=== PATIENT | female | born 1950 | race Caucasian/White ===

== ENCOUNTER 2017-03-28 17:00 | Emergency (ER) | payer MEDICARE, OTHER ==
[~2017-03-28] VITALS: Ht 162.6 cm; Wt 70.3 kg
[2017-03-28 17:29] LABS: BASOPHILS % (AUTO) 0 % (0-10); EOSINOPHILS % (AUTO) 0 % (0-10); HEMATOCRIT 45 % (35-52); HEMOGLOBIN 15.5 G/DL (11.5-16.0); LYMPHOCYTES # (AUTO) 1.6 X 10^3 (1.0-4.0); LYMPHOCYTES % (AUTO) 14 % (12-44); MEAN CORPUSCULAR HEMOGLOBIN 32 PG (25-34); MEAN CORPUSCULAR HGB CONC 35 G/DL (32-36); MEAN CORPUSCULAR VOLUME 91 FL (80-99); MEAN PLATELET VOLUME 10.7 FL (7.4-10.4); MONOCYTES # (AUTO) 0.3 X 10^3 (0.0-1.0); MONOCYTES % (AUTO) 3 % (0-12); NEUTROPHILS # (AUTO) 9.3 X 10^3 (1.8-7.8); NEUTROPHILS % (AUTO) 83 % (42-75); PLATELET COUNT 313 10^3/uL (130-400); RED BLOOD COUNT 4.89 10^6/uL (4.35-5.85); RED CELL DISTRIBUTION WIDTH 12.8 % (10.0-14.5); WHITE BLOOD COUNT 11.3 10^3/uL (4.3-11.0)
[2017-03-28] MEDS ORDERED: ONDANSETRON 4 MG/2 ML (SDV) Z0FRAN IVP ONE (17:30)
[2017-03-28] MEDS ORDERED: MECLIZINE 25 MG (ANTIVERT) TAB PO ONE (17:30)
--- NOTE | 2017-03-28 17:31 | ED General ---
General Chief Complaint: Dizziness/Syncope Stated Complaint: DIZZY/N/V/SYNCOPE Nursing Triage Note: PATIENT DIZZY, ALMOST PASSING OUT. SHE HAS BEEN NAUSEOUS. Nursing Sepsis Screen: No Definite Risk Source of Information: Patient Exam Limitations: No Limitations (MATTHEW LIVINGSTON MD) History of Present Illness Date Seen by Provider: Mar 28, 2017 Time Seen by Provider: 17:05 Initial Comments Here by EMS with report of persistent dizziness since waking up this morning. States that she was fine yesterday. When she woke up this morning she was nauseated and dizzy with sitting up. She fell back in the bed 3 times. She has vomited. Denies chest pain or diarrhea but states that her stomach is very active. 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 Denies any upper respiratory symptoms. Denies ear pain or fullness. Denies any recent trauma or injury. She did not hit her head or injure herself with the fall as these were all sitting up in bed in that she would have to lay back or fall back. Timing/Duration: 4-6 Hours Severity: Moderate Associated Systoms: No Chest Pain, No Cough, No Fever/Chills, Nausea/Vomiting, No Seizure, No Shortness of Air, No Weakness (MATTHEW LIVINGSTON MD) Allergies and Home Medications Allergies Coded Allergies: codeine (Verified Allergy, Unknown, 03/28/17) Home Medications Sulfamethoxazole/Trimethoprim 1 Each Tablet, 1 EACH PO BID, #10 Ref 0 Prescribed by: PAWEL POOLE on 03/28/172038 Constitutional: see HPI, No chills, No fever EENTM: see HPI Respiratory: No cough, No short of breath Cardiovascular: No chest pain, No palpitations, other (near syncope) Gastrointestinal: No abdominal pain, No diarrhea, nausea, vomiting Genitourinary: no symptoms reported Musculoskeletal: no symptoms reported Skin: no symptoms reported Psychiatric/Neurological: See HPI, Denies Headache, Other (dizziness with moving and sitting up.) Hematologic/Lymphatic: No Symptoms Reported (MATTHEW LIVINGSTON MD) All Other Systems Reviewed Negative Unless Noted: Yes (MATTHEW LIVINGSTON MD) Past Puumnat-Cfqnyp-Oekrpm Hx Patient Social History Alcohol Use: Denies Use Recreational Drug Use: No Smoking Status: Never a Smoker 2nd Hand Smoke Exposure: No Recent Foreign Travel: No Contact w/Someone Who Travel: No Recent Infectious Disease Expo: No Recent Hopitalizations: No (MATTHEW LIVINGSTON MD) Seasonal Allergies Seasonal Allergies: No (MATTHEW LIVINGSTON MD) Surgeries History of Surgeries: Yes (D&c, ) Surgeries: Breast, Eye Surgery, Orthopedic (MATTEHW LIVINGSTON MD) Respiratory History of Respiratory Disorde: Yes Respiratory Disorders: Chronic Bronchitis (MATTHEW LIVINGSTON MD) Neurological History of Neurological Disord: Yes Neurological Disorders: Vertigo (MATTHEW LIVINGSTON MD) Gastrointestinal History of Gastrointestinal Di: Yes Gastrointestinal Disorders: Gastroesophageal Reflux (MATTHEW LIVINGSTON MD) Musculoskeletal History of Musculoskeletal Dis: Yes Musculoskeletal Disorders: Degenerate Disk Disease (MATTHEW LIVINGSTON MD) Endocrine History of Endocrine Disorders: No (MATTHEW LIVINGSTON MD) HEENT History of HEENT Disorders: Yes HEENT Disorders: Glaucoma (MATTHEW LIVINGSTON MD) Cancer History of Cancer: No (MATTHEW LIVINGSTON MD) Psychosocial History of Psychiatric Problem: No (MATTHEW LIVINGSTON MD) Blood Transfusions History of Blood Disorders: No (MATTHEW LIVINGSTON MD) Reviewed Nursing Assessment Reviewed/Agree w Nursing PMH: Yes (MATTHEW LIVINGSTON MD) Family Medical History Significant Family History: Hypertension, Vascular Disease (MATTHEW LIVINGSTON MD) Physical Exam Vital Signs Vital Signs - First Documented 03/28/17 17:02 Temp 99.0 Pulse 77 Resp 18 B/P (MAP) 143/83 (103) Pulse Ox 98 O2 Delivery Room Air (PAWEL POOLE) Vital Signs Capillary Refill : Less Than 3 Seconds (MATTHEW LIVINGSTON MD) General Appearance: WD/WN, Mild Distress (dizziness and nausea) Eyes: Bilateral Eye Normal Inspection, Bilateral Eye PERRL, Bilateral Eye EOMI , Bilateral Eye Other (no nystagmus noted) HEENT: PERRL/EOMI, TMs Normal, Pharynx Normal Neck: Non Tender, Supple Respiratory: Lungs Clear, Normal Breath Sounds Cardiovascular: Regular Rate, Rhythm, No Murmur Gastrointestinal: Non Tender, Soft Back: Normal Inspection, No CVA Tenderness, No Vertebral Tenderness Extremity: Normal Inspection, Normal Range of Motion, Non Tender, No Calf Tenderness Neurologic/Psychiatric: Alert, Oriented x3, No Motor/Sensory Deficits Skin: Normal Color, Warm/Dry (MATTHEW LIVINGSTON MD) Progress/Results/Core Measures Suspected Sepsis Recent Fever Within 48 Hours: No Infection Criteria Present: None New/Unexplained Altered Menta: No Sepsis Screen: No Definite Risk Sepsis Diagnosis: SIRS Temperature:99.0 Pulse: 77 Respiratory Rate: 18 Blood Pressure 143 /83 Mean: 103 (MATTHEW LIVINGSTON MD) Results/Orders Lab Results Laboratory Tests Test 03/28/17 17:00 03/28/17 17:49 Range/Units White Blood Count 11.3 H 4.3-11.0 10^3/uL Red Blood Count 4.89 4.35-5.85 10^6/uL Hemoglobin 15.5 11.5-16.0 G/DL Hematocrit 45 35-52 % Mean Corpuscular Volume 91 80-99 FL Mean Corpuscular Hemoglobin 32 25-34 PG Mean Corpuscular Hemoglobin Concent 35 32-36 G/DL Red Cell Distribution Width 12.8 10.0-14.5 % Platelet Count 313 130-400 10^3/uL Mean Platelet Volume 10.7 H 7.4-10.4 FL Neutrophils (%) (Auto) 83 H 42-75 % Lymphocytes (%) (Auto) 14 12-44 % Monocytes (%) (Auto) 3 0-12 % Eosinophils (%) (Auto) 0 0-10 % Basophils (%) (Auto) 0 0-10 % Neutrophils # (Auto) 9.3 H 1.8-7.8 X 10^3 Lymphocytes # (Auto) 1.6 1.0-4.0 X 10^3 Monocytes # (Auto) 0.3 0.0-1.0 X 10^3 Eosinophils # (Auto) 0.0 0.0-0.3 10^3/uL Basophils # (Auto) 0.0 0.0-0.1 10^3/uL D-Dimer 0.37 0.00-0.49 UG/ML Sodium Level 139 135-145 MMOL/L Potassium Level 3.9 3.6-5.0 MMOL/L Chloride Level 104 98-107 MMOL/L Carbon Dioxide Level 17 L 21-32 MMOL/L Anion Gap 18 H 5-14 MMOL/L Blood Urea Nitrogen 13 7-18 MG/DL Creatinine 0.85 0.60-1.30 MG/DL Estimat Glomerular Filtration Rate > 60 BUN/Creatinine Ratio 15 Glucose Level 118 H 70-105 MG/DL Calcium Level 10.0 8.5-10.1 MG/DL Magnesium Level 2.1 1.8-2.4 MG/DL Total Bilirubin 0.8 0.1-1.0 MG/DL Aspartate Amino Transf (AST/SGOT) 19 5-34 U/L Alanine Aminotransferase (ALT/SGPT) 13 0-55 U/L Alkaline Phosphatase 79 40-136 U/L Myoglobin 36.6 10.0-92.0 NG/ML Troponin I < 0.30 <0.30 NG/ML Total Protein 7.6 6.4-8.2 GM/DL Albumin 4.3 3.2-4.5 GM/DL Thyroid Stimulating Hormone (TSH) 0.56 0.35-4.94 UIU/ML Urine Color YELLOW Urine Clarity CLEAR Urine pH 8 5-9 Urine Specific [place] 1.010 L 1.016-1.022 Urine Protein NEGATIVE NEGATIVE Urine Glucose (UA) NEGATIVE NEGATIVE Urine Ketones 4+ H NEGATIVE Urine Nitrite NEGATIVE NEGATIVE Urine Bilirubin NEGATIVE NEGATIVE Urine Urobilinogen NORMAL NORMAL MG/DL Urine Leukocyte Esterase 2+ H NEGATIVE Urine RBC (Auto) NEGATIVE NEGATIVE Urine RBC NONE /HPF Urine WBC 25-50 H /HPF Urine Squamous Epithelial Cells 25-50 H /HPF Urine Crystals NONE /LPF Urine Bacteria FEW H /HPF Urine Casts NONE /LPF Urine Mucus NEGATIVE /LPF Urine Culture Indicated YES (PAWEL POOLE) Micro Results Microbiology 03/28/17 Influenza Types A,B Antigen (GAGAN) - Final, Complete 03/28/17 Urine Culture - Preliminary, Resulted Strep, Beta Hemolytic Group B (PAWEL POOLE) My Orders Orders - PAWEL POOLE Saline Lock/Iv-Start (03/28/17 18:20) Ns Iv 1000 Ml (Sodium Chloride 0.9%) (03/28/17 18:20) General/Regular (03/28/17 Dinner) Ct Head Wo (03/28/17 20:14) Sulfamethoxazole/Trimet Ds Tab (Bactrim (03/28/17 20:14) Rx-Trimeth/Sulfameth Ds Tab (Rx-Bactrim/ (03/28/17 20:40) Rx-Meclizine Hcl (Rx-Antivert) (03/28/17 20:40) Rx-Ondansetron Po (Rx-Zofran Po) (03/28/17 20:51) (PAWEL POOLE) Medications Given in ED (PAWEL POOLE) Vital Signs/I&O Intake and Output 03/29/17 00:00 Intake Total 1000 ml Balance 1000 ml (PAWEL POOLE) Vital Signs/I&O Capillary Refill : Less Than 3 Seconds (MATTHEW LIVINGSTON MD) Blood Pressure Mean: 103 Progress Note : Progress Note Seen and evaluated. IV by EMS. 1 L normal saline by EMS. Labs, UA and EKG ordered. Zofran 4 mg IV and meclizine 25 mg by mouth ordered. Monitor patient. (MATTHEW LIVINGSTON MD) Progress Note : Progress Note 1800 patient reports trace improvement in her symptoms, she's had no further nausea or vomiting. All labs to this point have been normal. Urine sample just obtained. 1844 patient taking ice chips. UA positive for urinary tract infection. 4+ ketones, will give normal saline IV 1 L. 1914 patient will attempt Coke orally and saltines 1999 patient continues to have mild dizziness with change of position. No nystagmus noted. CT head without contrast to be completed. [address] of head, patient able to sit on the side of the bed with minimal dizziness. 2039 CT head negative. Patient instructed in the Francisco maneuver for vertigo. Sitting on side of bed, no worsening of the nausea, vomiting or vertigo. Able to ambulate to wheelchair with minimal assistance and no complaints of vertigo. Discharge instructions, return precautions and home recommendations discussed at length with the patient. All questions answered. (PAWEL POOLE) ECG Initial ECG Impression Date: Mar 28, 2017 Initial ECG Impression Time: 17:23 Initial ECG Rate: 69 Initial ECG Rhythm: Normal Sinus Initial ECG Impression: Normal Initial ECG Comparisson: No Previous ECG Available Comment Sinus rhythm with normal axis. No evidence of ST elevation [place]. No previous available for comparison. Interpreted by me. (MATTHEW LIVINGSTON MD) Diagnostic Imaging Diagonstic Imaging: CT Plain Films/CT/US/NM/MRI: head Comments NAME: BECKY GREEN MED REC#: [id number] PT STATUS: REG ER : 1950 PHYSICIAN: PAWEL POOLE ADMIT DATE: 03/28/17/ER Draft Date of Exam:03/28/17 CT HEAD WO PROCEDURE: CT head without contrast. TECHNIQUE: Multiple contiguous axial images were obtained through the brain without the use of intravenous contrast. INDICATION: Dizziness, nausea, and vomiting There are no prior studies available for comparison. There is no mass, shift of the midline or hemorrhage to suggest an acute intracranial abnormality. The normal tentorial blush is noted. The ventricles are not abnormally dilated. There is mild cortical atrophy present. The degree of atrophy is consistent with the patient's age. The bone window show no evidence for a fracture or for a destructive lesion. The orbits and sinuses were not visualized in their entirety. Where visualized, there is no acute abnormality. IMPRESSION: 1. There is no evidence for an acute intracranial abnormality and there is no sign of a mass lesion. 2. If clinical concern regarding an underlying abnormality persists, then MRI would be recommended for further study. Dictated on workstation # [id number] Dict: 03/28/172024 Trans: 03/28/172029 DARIO [id number] Interpreted by: ISADORA ROMEO MD Electronically signed by: (PAWEL POOLE) Departure Impression Impression: Primary Impression: Vertigo Additional Impression: Urinary tract infection Qualified Codes: N30.01 - Acute cystitis with hematuria Disposition: HOME, SELF-CARE Condition: Stable Departure-Patient Inst. Decision time for Depature: 20:30 (PAWEL POOLE) Referrals: NO,LOCAL PHYSICIAN (PCP/Family) Primary Care Physician Patient Instructions: Urinary Tract Infection, Adult (DC), Vertigo (a Type of Dizziness) (DC) Add. Discharge Instructions: Increase water intake. Drink 1 glass of cranberry juice or eat 1 cup of fresh blueberries daily. Empty bladder every 2 hours while awake. Tylenol 650 mg alternating with ibuprofen 600 mg every 4 hours for fever or pain. All up with your primary care provider in 2-3 days if symptoms are not improving. Take antibiotic as prescribed. Take Antivert until follow-up with your primary care provider. Change positions slowly, moved from lying to sitting then standing slowly. Return to emergency department for fever greater than 101, increasing muscle weakness, dizziness or seizure activity, new problems or concerns. All discharge instructions reviewed with patient and/or family. Voiced understanding. Scripts Sulfamethoxazole/Trimethoprim (Bactrim Ds Tablet) 1 Each Tablet 1 EACH PO BID, #10 TAB 0 Refills Prov: PAWEL POOLE 03/28/17 MATTHEW LIVINGSTON MD Mar 28, 2017 17:30 PAWEL POOLE Mar 28, 2017 19:40
[2017-03-28 17:43] LABS: ALANINE AMINOTRANSFERASE 13 U/L (0-55); ALBUMIN 4.3 GM/DL (3.2-4.5); ALKALINE PHOSPHATASE 79 U/L (40-136); BILIRUBIN,TOTAL 0.8 MG/DL (0.1-1.0); BUN/CREATININE RATIO 15; CARBON DIOXIDE 17 MMOL/L (21-32); CHLORIDE 104 MMOL/L (98-107); CREATININE SERUM 0.85 MG/DL (0.60-1.30); GFR ESTIMATED > 60; GLUCOSE 118 MG/DL (70-105); MAGNESIUM 2.1 MG/DL (1.8-2.4); POTASSIUM 3.9 MMOL/L (3.6-5.0); SODIUM 139 MMOL/L (135-145); TOTAL PROTEIN 7.6 GM/DL (6.4-8.2)
[2017-03-28 17:56] LABS: BILIRUBIN,URINE NEGATIVE (NEGATIVE); CLARITY,URINE CLEAR; COLOR,URINE YELLOW; GLUCOSE, URINE (UA) NEGATIVE (NEGATIVE); KETONES,URINE 4+ (NEGATIVE); LEUKOCYTE ESTERASE ,URINE 2+ (NEGATIVE); NITRITE,URINE NEGATIVE (NEGATIVE); PH,URINE 8 (5-9); PROTEIN,URINE NEGATIVE (NEGATIVE); UROBILINOGEN,URINE NORMAL (NORMAL)
[2017-03-28 18:03] LABS: MYOGLOBIN SERUM 36.6 NG/ML (10.0-92.0)
[2017-03-28 18:07] LABS: BACTERIA,URINE FEW /HPF; SQUAMOUS EPITHELIAL CELL,UR 25-50 /HPF; WBC,URINE 25-50 /HPF
[2017-03-28] MEDS ORDERED: NS IV 1000 ML 1,000 ML IV ONE (18:20)
[2017-03-28] MEDS ORDERED: TRIM/SULFAMETH 160/800 (SEPTRA DS) TAB PO STA (20:14)
--- NOTE | 2017-03-28 20:31 | Diagnostic Imaging Report ---
PROCEDURE: CT head without contrast. TECHNIQUE: Multiple contiguous axial images were obtained through the brain without the use of intravenous contrast. INDICATION: Dizziness, nausea, and vomiting There are no prior studies available for comparison. There is no mass, shift of the midline or hemorrhage to suggest an acute intracranial abnormality. The normal tentorial blush is noted. The ventricles are not abnormally dilated. There is mild cortical atrophy present. The degree of atrophy is consistent with the patient's age. The bone window show no evidence for a fracture or for a destructive lesion. The orbits and sinuses were not visualized in their entirety. Where visualized, there is no acute abnormality. IMPRESSION: 1. There is no evidence for an acute intracranial abnormality and there is no sign of a mass lesion. 2. If clinical concern regarding an underlying abnormality persists, then MRI would be recommended for further study. Dictated by: Dictated on workstation # [id number]
[2017-03-28] MEDS ORDERED: SULF1TAB35 PO (20:39)
[2017-03-28] MEDS ORDERED: RX-TRIMETH/SULFA. 160-800 MG (BACTRIM DS) TAB PPK#2 PO STA (20:40)
[2017-03-28] MEDS ORDERED: RX-MECLIZINE HCL (ANTIVERT) 25 MG TAB #4 PPK PO STA (20:40)
[2017-03-28] MEDS ORDERED: RX-ONDANSETRON 4 MG ODT (ZOFRAN) PPK #4 PO STA (20:51)
[2017-03-28 21:02] VITALS: BP 114/79
== END 2017-03-28 21:02 | disposition home or self-care (01) ==
LOC: ER 17:02
DX: N39.0 Urinary tract infection, site not specified (principal); R42 Dizziness and giddiness; K21.9 Gastro-esophageal reflux disease without esophagitis; J42 Unspecified chronic bronchitis; Z88.5 Allergy status to narcotic agent
CPT/HCPCS: 36415; 70450; 80053; 81000; 83735; 83874; 84443; 84484; 85025; 85379; 87088; 87804; 93005